=== PATIENT | male | born 1970 | race Caucasian/White ===

== ENCOUNTER 2024-03-10 11:41 | Emergency (ER) | payer SELFPAY ==
[~2024-03-10] VITALS: Ht 167.6 cm; Wt 106.6 kg
[2024-03-10 11:43] VITALS: PULSE 85; RESP 16; TEMP 97.5; O2SAT 100
[2024-03-10] MEDS ORDERED: METHOCARBAMOL750 MG PO (12:01)
[2024-03-10] MEDS ORDERED: ULTRAM 50MG50 MG PO (12:01)
[2024-03-10] MEDS: KETOROLAC TROMETHAMINE 60 MG/2 ML VIAL IM ONE (12:03)
[2024-03-10] MEDS: TRAMADOL HCL 50 MG TAB PO ONE (12:04)
== END 2024-03-10 12:10 | disposition home or self-care (01) ==
LOC: ER 11:44
DX: S46.811A Strain of other muscles, fascia and tendons at shoulder and upper arm level, right arm, initial encounter (principal); X50.0XXA Overexertion from strenuous movement or load, initial encounter; Y92.89 Other specified places as the place of occurrence of the external cause; E03.9 Hypothyroidism, unspecified
CPT/HCPCS: 99283; J1885